=== PATIENT | male | born 1995 | race Caucasian/White ===

== ENCOUNTER 2017-12-15 23:28 | Emergency (ER) | payer MEDICAID, OTHER ==
[~2017-12-15] VITALS: Ht 162.6 cm; Wt 70.8 kg
[2017-12-16] MEDS ORDERED: RX-TRIMETH/SULFA. 160-800 MG (BACTRIM DS) TAB PPK#2 PO STA (00:07)
[2017-12-16] MEDS ORDERED: RX-MUPIROCIN (BACTROBAN) 2% OINT 22 GM TUBE TOP STA (00:07)
[2017-12-16] MEDS ORDERED: SULF1TAB35 PO (00:11)
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
[2017-12-16 00:15] VITALS: BP 126/75
== END 2017-12-16 00:16 | disposition home or self-care (01) ==
LOC: ER 23:31
DX: S01.512A Laceration without foreign body of oral cavity, initial encounter (principal); X58.XXXA Exposure to other specified factors, initial encounter
CPT/HCPCS: 99283

== ENCOUNTER 2018-09-10 11:56 | Emergency (ER) | payer MEDICAID ==
[~2018-09-10] VITALS: Ht 160 cm; Wt 68.0 kg
[~2018-09-10 11:56] MED LIST: SULF1TAB35 PO
--- NOTE | 2018-09-10 12:43 | ED EENT ---
History of Present Illness General Chief Complaint: Oral/Throat Problems Stated Complaint: THROAT PAIN Source: patient Exam Limitations: no limitations History of Present Illness Date Seen by Provider: Sep 10, 2018 Time Seen by Provider: 12:38 Initial Comments To ER with a 6-7 day history of sore throat, rhinorrhea, nonproductive cough, body aches, nausea. Fever up to 105. No fever for 2 days. Timing/Duration: this morning Severity: moderate Location: throat Associated Symptoms: denies symptoms Allergies and Home Medications Allergies Coded Allergies: No Known Drug Allergies (Unverified , 12/16/17) Home Medications Sulfamethoxazole/Trimethoprim 1 Each Tablet, 1 EACH PO BID Prescribed by: RAIZA SPAIN on 12/16/17 0011 Patient Home Medication List Home Medication List Reviewed: Yes Review of Systems Review of Systems Constitutional: see HPI, fever Eyes: No Symptoms Reported Ears: No Symptoms Reported Nose: see HPI, other (rhinorrhea) Mouth: no symptoms reported Throat: see HPI, pain Respiratory: see HPI, cough Cardiovascular: no symptoms reported Musculoskeletal: no symptoms reported Skin: no symptoms reported Past Zaljcav-Zrxnwy-Fpaidb Hx Patient Social History Recent Hopitalizations: No Immunizations Up To Date Tetanus Booster (TDap): Less than 5yrs Seasonal Allergies Seasonal Allergies: No Past Medical History Surgeries: No Respiratory: No Cardiac: No Neurological: No Genitourinary: No Gastrointestinal: No Musculoskeletal: No Endocrine: No HEENT: No Cancer: No Psychosocial: No Integumentary: No Blood Disorders: No Physical Exam Vital Signs Vital Signs - First Documented 09/10/18 12:00 Temp 98.1 Pulse 79 Resp 16 B/P (MAP) 130/72 (91) Pulse Ox 98 O2 Delivery Room Air Height, Weight, BMI Height: 5'4.00" Weight: 156lbs. oz. [id number]; BMI Method:Stated General Appearance: WD/WN, no apparent distress Eyes: bilateral eye normal inspection, bilateral eye PERRL, bilateral eye EOMI Ears: bilateral ear auricle normal, bilateral ear canal normal, bilateral ear TM red (bilateral) Mouth/Throat: normal mouth inspection; No mandibular swelling, No tongue swol jason, No tonsillar swelling, No trismus, No uvula swelling, No voice changes Neck: non-tender, full range of motion, lymphadenopathy (R), lymphadenopathy (L) Cardiovascular: regular rate, rhythm, no murmur Respiratory: lungs clear, normal breath sounds, no respiratory distress, no accessory muscle use Neurologic/Psychiatric: alert, normal mood/affect, oriented x 3 Skin: normal color, warm/dry Progress/Results/Core Measures Results/Orders Lab Results Laboratory Tests Test 09/10/18 12:10 Range/Units Group A Streptococcus Screen NEGATIVE NEGATIVE My Orders Orders - NEYMAR JAMES APRN Rapid Strep A Screen (09/10/18 12:09) Vital Signs/I&O 09/10/18 12:00 Temp 98.1 Pulse 79 Resp 16 B/P (MAP) 130/72 (91) Pulse Ox 98 O2 Delivery Room Air Departure Impression Primary Impression: Pharyngitis Qualified Codes: J02.0 - Streptococcal pharyngitis Disposition: HOME, SELF-CARE Condition: Stable Departure-Patient Inst. Decision time for Depature: 12:42 Referrals: NO,LOCAL PHYSICIAN (PCP/Family) Primary Care Physician Patient Instructions: Sore Throat in Adults Add. Discharge Instructions: 1. You can use [id number] Chloraseptic spray. All discharge instructions reviewed with patient and/or family. Voiced understanding. Scripts Azithromycin (Azithromycin) 250 Mg Tablet 250 MG PO UD, #6 TAB TAKE 2 TABLETS ON DAY ONE THEN TAKE 1 TABLET DAILY FOR FOUR MORE DAYS Prov: NEYMAR JAMES APRN 09/10/18 Methylprednisolone (Medrol) 4 Mg Tab.ds.pk 4 MG PO UD for 6 Days, #21 PKG PER DOSE PACK INSTRUCTIONS Prov: NEYMAR JAMES APRN 09/10/18 Work/School Note: Work Release Form Date Seen in the Emergency Department: Sep 10, 2018 Return to Work: Sep 11, 2018 NEYMAR JAMES APRN Sep 10, 2018 12:43
[2018-09-10] MEDS ORDERED: METH4TAB PO (12:50)
[2018-09-10] MEDS ORDERED: AZIT250T12 PO (12:50)
[2018-09-10 12:55] VITALS: BP 130/72
== END 2018-09-10 12:55 | disposition home or self-care (01) ==
LOC: EDUNIT# 11:56 → ER 11:57
DX: J02.9 Acute pharyngitis, unspecified (principal)
CPT/HCPCS: 87430; 99284